=== PATIENT | female | born 1935 | race Caucasian/White ===

== ENCOUNTER 2017-11-21 06:50 | Day surgery (SDC) | payer MEDICARE, BC ==
[2017-11-21] MEDS ORDERED: PROPOFOL 10 MG/ML VIAL IV ONE (06:51)
[2017-11-21] MEDS ORDERED: MIDAZOLAM HCL 2MG/2ML VIAL IV ONE (06:51)
[2017-11-21] MEDS ORDERED: *PACU ONLY* KETAMINE HCL 10 MG/ML (20ML) VIAL IV ONE (06:51)
[2017-11-21] MEDS ORDERED: DEXAMETHASONE PRESERVATIVE FREE 10MG/ML VIAL IV ONE (06:51)
[2017-11-21] MEDS ORDERED: FENTANYL PF 100MCG/2ML VIAL IV ONE (06:51)
[2017-11-21] MEDS ORDERED: BUPIVACAINE 0.5% W/EPI MPF 30 ML VIAL IVP ONE (06:51)
[2017-11-21] MEDS ORDERED: LIDOCAINE 1% W/EPI 1:200,000 MPF 30ML SQ ONE (06:51)
[2017-11-21 07:15] LABS: INR 1.2; PROTHROMBIN TIME (PATIENT) 12.6 SECONDS (9.5-12.1)
--- NOTE | 2017-11-21 15:25 | Operative Note - [place] ---
DATE OF SURGERY: 11/21/17 PREOPERATIVE DIAGNOSIS: CERVICAL SPONDYLOSIS WITHOUT MYELOPATHY, ICD-10 CODE = M47.812. OPERATION: RADIOFREQUENCY RHIZOTOMY BILATERAL CERVICAL FACETS AT 4-5 AND 5-6. SURGEON: CLAUDE WILSON D.O. ANESTHESIA: LOCAL SEDATION. ANESTHESIA PROVIDER: RAJEEV KEANE CRNA. INDICATION: This patient presents with a history of intractable cervical spine pain. Diagnostics showed diffuse multiple levels of spondylosis. A facet series 75 to 80% pain control. Due to the failure of therapy and the success of the facet series, the patient presents today for rhizotomy for more long-term relief. PROCEDURE: Intravenous line, vital sign monitoring, IV sedation by Anesthesia, patient position prone. Sterile prep, sterile technique. Under imaging, the 22- gauge rhizotomy cannula positioned. Stimulation trials conducted. Rhizotomy burn performed. Local with anti-inflammatory into the sites. Topical antibiotics and sterile dressing was applied. We will monitor and evaluate. cc: Dr. aBbin JOB NUMBER: [id number] MTDD
== END 2017-11-21 09:30 | disposition home or self-care (01) ==
LOC: SUR 06:50
PROVIDERS: ATTEND Pain Medicine Interventional Pain Medicine
DX: M47.812 Spondylosis without myelopathy or radiculopathy, cervical region (principal); I10 Essential (primary) hypertension; E78.00 Pure hypercholesterolemia, unspecified; Z79.01 Long term (current) use of anticoagulants; J45.909 Unspecified asthma, uncomplicated; Z86.711 Personal history of pulmonary embolism; I25.10 Atherosclerotic heart disease of native coronary artery without angina pectoris; M19.90 Unspecified osteoarthritis, unspecified site
CPT/HCPCS: 64633; 64634; 01936; 85610; J1100; J3010